=== PATIENT | male | born 1935 | race Caucasian/White ===

== ENCOUNTER 2020-12-24 11:05 | Emergency (ER) | payer OTHER ==
[~2020-12-24] VITALS: Ht 182.9 cm; Wt 98.0 kg
--- NOTE | ~2020-12-24 | EMS ---
[facility] [address] [place] [address] EMS Patient Care Report Name: VICENTA HERRERA [id number] Admission: 12/24/20 Attend Phys: Discharge: Date of : 37 Report #: [id number] THIS REPORT FOR: //name// Report Transmitted: 12/24/2020 12:02 EMS Care Summary [employer] [facility] Incident 21- @ 12/24/2020 10:02 Incident Location [address] [place] [address] Patient VICENTA HERRERA Male, 85 Years 1935 Patient Address [address] [place] [address] Patient History Chronic Obstructive Pulmonary Disease (COPD),Seizures, Patient Allergies Other drug allergy,Dilantin, Chief Complaint Dizziness/Chills Disposition Transported No Lights/[place] Dispatch Reason Sick Person Transported To [facility] Narrative Utility 1 and Med 1 were dispatched for a [age] year-old male c/o headache, dizziness, and chills for the last three weeks. Upon arrival, patient was standing outside in his driveway accompanied by his neighbor waiting for the ambulance. Patient reports that he was discharged from the [facility] approximately 2-3 weeks ago where he was admitted for the same symptoms he called 911 for today. Patient reports that he was admitted for [address] [address] EMS Patient Care Report Name: VICENTA HERRERA Room: [facility]#: [id number] Admission: 12/24/20 Attend Phys: Discharge: Date of : 37 Report #: [id number] several day days they found 4 ticks on him and sent him home with antibiotics and home health came twice and he misplaced his antibiotics and did not finish them. He was not given a DX upon discharge he said. Patient was assisted to the stretcher and secured via seatbelts and moved to the ambulance without incident. In the ambulance, patient's vitals were obtained and logistics supervisor was placed on the patient. It shown NSR. IV access was established in the patients left AC with a 20 GA IV catheter and Normal Saline at a TKO rate. Patients had CEBBS. Patients blood glucose was obtained with a result of 98 mg/dL. Patient was monitored through out transport. Hospital report was given via radio with no questions or orders requested or received. Med 1 arrived at the hospital. Patient was moved into ER room 9 without incident. Patient care was transferred to ER Staff. Med 1 returned back into service. [id number] KShook Initial Vitals @10:52P: 62,R: 18,BP: 150/84,GCS: 15,SpO2: 95,Revised Trauma: 12, @10:37P: 64,R: 18,BP: 144/86,GCS: 15,Temp: 97.9F,Glucose: 98,SpO2: 94,Revised Trauma: 12, Assessments @10:43MENTAL:No Abnormalities,SKIN:No Abnormalities,HEENT:Head/Face: No Abnormalities,Eyes: No Abnormalities,Neck/Airway: No Abnormalities,LUNG SOUNDS:General: No Abnormalities,Left Upper: No Abnormalities,Right Upper: No Abnormalities,Left Lower: No Abnormalities,Right Lower: No Abnormalities,ABDOMEN:General: No Abnormalities,Left Upper: No Abnormalities,Right Upper: No Abnormalities,Left Lower: No Abnormalities,Right Lower: No Abnormalities,PELVIS//GI:No Abnormalities,EXTREMITIES:Left Arm: No Abnormalities,Right Arm: No Abnormalities,Left Leg: No Abnormalities,Right Leg: No Abnormalities,PULSE:NEURO:No Abnormalities, Impression Headache Procedures @10:41Normal Saline (.9% NaCl) - Cold 800cc (20 ga) Site: Antecubital-LeftResponse: UnchangedSucceeded Timeline 10:02,Call Received 10:02,[place] [address] EMS Patient Care Report Name: VICENTA HERRERA Room: [facility]#: [id number] Admission: 12/24/20 Attend Phys: Discharge: Date of : 37 Report #: [id number] 10:02,En Route 10:12,On Scene 10:13,At Patient 10:32,Depart Scene 10:37,BP: 144/86 M,PULSE: 64,RR: 18 R,SPO2: 94 Ox,ETCO2: ,B,PAIN: ,GCS: 15, 10:41,Normal Saline (.9% NaCl) - Cold 800cc 20 ga Site: Antecubital-Left,Response: UnchangedSucceeded, 10:52,BP: 150/84 M,PULSE: 62,RR: 18 R,SPO2: 95 Ox,ETCO2: ,BG: ,PAIN: ,GCS: 15, 11:03,At Destination 11:37,Call Closed 11:37,In District Disclaimer v1.1 Copyright 2020 [employer] This EMS Care Summary contains data elements from the applicable legal record (which may be displayed differently). It is designed to provide pertinent information for the following purposes: continuity of care, clinical quality, and state data reporting. The complete legal record is available to ED staff and administrators of the receiving hospital in [employer]'s Patient Tracker. All data is provided "as is."
[~2020-12-24 11:05] MED LIST: ACID REFLUX MED; CHOLESTEROL MED; VITAMIN D400 UNI1
[2020-12-24 11:40] LABS: ABSOLUTE BASOPHILS 0.1 thou/uL (0.0-0.2); ABSOLUTE EOSINOPHILS 0.1 thou/uL (0.0-0.7); ABSOLUTE LYMPHOCYTES 0.8 thou/uL (0.8-5.3); ABSOLUTE MONOCYTES 0.4 thou/uL (0.0-1.2); ABSOLUTE NEUTROPHILS 3.1 thou/uL (1.6-8.1); BASOPHILS 1.2 %; EOSINOPHILS 1.8 %; HEMATOCRIT 44.4 % (42.0-52.0); HEMOGLOBIN 14.5 gm/dL (14.0-18.0); LYMPHOCYTES 17.6 %; MCH 30.8 pg (26.0-34.0); MCHC 32.8 g/dL (28.0-37.0); MONOCYTES 10.1 %; MPV 8.3 fl. (7.2-11.1); NUCLEATED RBCS 0 /100WBC; PLATELET COUNT* 146 thou/uL (150-400); POLYS 69.3 %; RBC 4.72 mil/uL (4.50-6.00); WBC 4.4 thou/uL (4.0-11.0)
[2020-12-24 11:48] LABS: CALCIUM 8.2 mg/dL (8.5-10.1); CREATININE 0.7 mg/dL (0.6-1.3); POTASSIUM 3.8 mmol/L (3.5-5.1)
[2020-12-24 11:59] LABS: ALBUMIN 3.2 g/dL (3.4-5.0); TOTAL BILIRUBIN 0.3 mg/dL (<0.1-1.0); TOTAL PROTEIN 6.4 g/dL (6.4-8.2)
[2020-12-24 12:26] LABS: URINE BILIRUBIN NEGATIVE (Negative); URINE BLOOD NEGATIVE (Negative); URINE CLARITY CLEAR; URINE COLOR YELLOW; URINE GLUCOSE-RANDOM NEGATIVE (Negative); URINE KETONES NEGATIVE (Negative); URINE LEUKOCYTES NEGATIVE (Negative); URINE NITRITE NEGATIVE (Negative); URINE PROTEIN NEGATIVE (Negative); URINE SPECIFIC GRAVITY >= 1.030 (1.005-1.030)
[2020-12-24 13:32] VITALS: BP 153/69
--- NOTE | 2020-12-26 15:17 | EKG ---
[place] [address] ELECTROCARDIOGRAM REPORT Name: VICENTA HERRERA Room: [facility]#: [id number] Admission: 12/24/20 Attend Phys: Discharge: 12/24/20 Date of : 37 Date of Service: 12/24/20 1121 Report #: [id number] THIS REPORT FOR: //name// [facility] ED Test Date: 2020-12-24 Test Time: 11:21:44 Pat Name: VICENTA HERRERA Department: Room: Gender: [employer] Helper: [facility] : 1935 Requested By: Mich Enciso Order Number: [id number] MD: Cesar Hebert Measurements Intervals [place] Rate: 52 P: 57 TX: 148 QRS: 28 QRSD: 102 T: 60 QT: 449 QTc: 418 Interpretive Statements Sinus rhythm Abnormal R-wave progression, early transition No previous ECG available for comparison Electronically Signed On 12-26-2020 15:17:19 CDT by Cesar Hebert [email or web address] <ELECTRONICALLY SIGNED> By: Cesar Hebert MD, [facility] 12/26/20 1517 112 112 Cesar Hebert MD, [facility] /EPI
== END 2020-12-24 13:33 | disposition home or self-care (01) ==
LOC: M.ERS 11:05
PROVIDERS: Emergency Medicine
DX: R42 Dizziness and giddiness (principal); J44.9 Chronic obstructive pulmonary disease, unspecified; E78.00 Pure hypercholesterolemia, unspecified; I25.10 Atherosclerotic heart disease of native coronary artery without angina pectoris; Z86.73 Personal history of transient ischemic attack (TIA), and cerebral infarction without residual deficits

== ENCOUNTER 2021-02-06 19:44 | Emergency (ER) | payer OTHER, MEDICARE ==
[~2021-02-06] VITALS: Ht 182.9 cm; Wt 98.5 kg
[2021-02-06 20:41] LABS: ABSOLUTE BASOPHILS 0.1 thou/uL (0.0-0.2); ABSOLUTE EOSINOPHILS 0.2 thou/uL (0.0-0.7); ABSOLUTE LYMPHOCYTES 1.3 thou/uL (0.8-5.3); ABSOLUTE MONOCYTES 0.6 thou/uL (0.0-1.2); ABSOLUTE NEUTROPHILS 4.1 thou/uL (1.6-8.1); EOSINOPHILS 2.6 %; HEMOGLOBIN 14.2 gm/dL (14.0-18.0); LYMPHOCYTES 21.4 %; MCH 30.9 pg (26.0-34.0); MCHC 33.1 g/dL (28.0-37.0); MCV 93.3 fL (80.0-100.0); MPV 8.7 fl. (7.2-11.1); NUCLEATED RBCS 0 /100WBC; PLATELET COUNT* 150 thou/uL (150-400); RBC 4.61 mil/uL (4.50-6.00); RDW-CV 14.3 % (10.5-14.5); WBC 6.3 thou/uL (4.0-11.0)
[2021-02-06 20:56] LABS: CALCIUM 8.3 mg/dL (8.5-10.1); CREATININE 0.9 mg/dL (0.6-1.3); POTASSIUM 3.9 mmol/L (3.5-5.1)
[2021-02-06 21:01] LABS: URINE BILIRUBIN NEGATIVE (Negative); URINE BLOOD NEGATIVE (Negative); URINE CLARITY CLEAR; URINE COLOR YELLOW; URINE GLUCOSE-RANDOM NEGATIVE (Negative); URINE KETONES NEGATIVE (Negative); URINE LEUKOCYTES-REFLEX NEGATIVE (Negative); URINE NITRITE-REFLEX NEGATIVE (Negative); URINE PROTEIN NEGATIVE (Negative); URINE SPECIFIC GRAVITY >= 1.030 (1.005-1.030); URINE UROBILINOGEN 0.2 E.U./dl (0.2-1.0)
[2021-02-06 21:01] LABS: ALBUMIN 3.3 g/dL (3.4-5.0); TOTAL BILIRUBIN 0.3 mg/dL (<0.1-1.0); TOTAL PROTEIN 6.7 g/dL (6.4-8.2)
[2021-02-06] MEDS ORDERED: NORFLEX100 MG PO (22:24)
[2021-02-06] MEDS ORDERED: MEDROLDOSEPACK PO (22:24)
[2021-02-06] MEDS ORDERED: MELOXICAM15 MG PO (22:24)
[2021-02-06 22:53] VITALS: BP 137/77
== END 2021-02-06 22:54 | disposition home or self-care (01) ==
LOC: M.ERS 19:44
PROVIDERS: Personal Emergency Response Attendant
DX: M54.5 Low back pain (principal); E78.00 Pure hypercholesterolemia, unspecified; J44.9 Chronic obstructive pulmonary disease, unspecified; I25.10 Atherosclerotic heart disease of native coronary artery without angina pectoris; Z86.73 Personal history of transient ischemic attack (TIA), and cerebral infarction without residual deficits